=== PATIENT | male | born 1975 | race Caucasian/White ===

== ENCOUNTER 2017-12-17 09:26 | Emergency (ER) | payer OTHER ==
[~2017-12-17] VITALS: Ht 167.6 cm; Wt 77.1 kg
[2017-12-17 09:46] VITALS: BP 121/78
[2017-12-17] MEDS ORDERED: Fluorescein Strips BOTH EYES ONE (10:00)
[2017-12-17] MEDS ORDERED: Tetracaine 0.5% Opth 4ml Soln RIGHT EYE ONE (10:00)
[2017-12-17] MEDS ORDERED: Tetracaine 0.5% Opth 4ml Soln LEFT EYE ONE (10:00)
[2017-12-17] MEDS ORDERED: ACETAMINOPHEN-1 EAC1 ORAL (10:01)
[2017-12-17] MEDS ORDERED: GENTAMICIN SUL3.5 GM OP (10:01)
[2017-12-17] MEDS ORDERED: IBUPROFEN600 MG ORAL (10:01)
[2017-12-17] MEDS ORDERED: Tylenol #3 tab (300mg/30mg) ORAL ONE (10:15)
[2017-12-17 10:17] VITALS: BP 121/78
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
== END 2017-12-17 10:18 | disposition home or self-care (01) ==
LOC: EMR 10:09
DX: T26.32XA Burns of other specified parts of left eye and adnexa, initial encounter (principal); T26.31XA Burns of other specified parts of right eye and adnexa, initial encounter; X08.8XXA Exposure to other specified smoke, fire and flames, initial encounter; Y92.9 Unspecified place or not applicable
CPT/HCPCS: 99284